=== PATIENT | female | born 1985 | race Hispanic/Latino ===

== ENCOUNTER 2016-12-21 07:00 | Emergency (ER) | payer SELFPAY ==
[2016-12-21 07:34] VITALS: BP 158/90; PULSE 100; RESP 18; TEMP 98.4; O2SAT 100
--- NOTE | 2016-12-21 07:39 | ED PDOC ---
HPI: Psych/Substance Abuse Time Seen by Provider: 12/21/16 07:12 Chief Complaint (Nursing): Substance Abuse History Per: Patient, EMS History/Exam Limitations: no limitations Current Symptoms Are (Timing): Gone Now Suicide/Self Injury Attempted (Context): None Severity: Mild Associated Symptoms: denies: Anger, Anxiety, Agitation, Depression, Paranoia, Suicidal Thoughts, Suicidal Plan Involuntary Hold By: None Additional History Per: EMS Additional Complaint(s): As per EMS, pt was found sleeping on the street. Pt admits to taking 1 tab of Xanax. Pt denies a/v/t hallucinations. Pt denies suicidal or homicidal ideations. Pt states she is stressed due to work and has not had any sleep. pt is refusing any medical eval at this time. Against Medical Advice - AMA Patient Left Against Medical Advice: The patient declines admission to the hospital and wishes to leave the Emergency Department. This action is against my medical advice. This decision was made with informed refusal. The patient was told that admission to the hospital is necessary. Explanation of the reasons why were discussed. The risks of leaving were explained to the patient and include, but are not limited to, worsening of known or currently unknown conditions, permanent disability and from undiagnosed or untreated conditions. The patient has the capacity to make this informed decision and understands my explanation of the current medical problem and risks of leaving. The patient voluntarily accepts these risks and signed an AMA form documenting our conversation. The patient was given the opportunity to ask questions and reconsider. The patient was encouraged to return to the Emergency Department at any time for further care. Past Medical History Reviewed: Historical Data, Nursing Documentation, Vital Signs Vital Signs: Last Vital Signs Temp 98.4 F 12/21/16 07:31 Pulse 100 H 12/21/16 07:31 Resp 18 12/21/16 07:31 BP 158/90 H 12/21/16 07:31 Pulse Ox 100 12/21/16 07:31 - Medical History PMH: No Chronic Diseases - Family History Family History: States: Unknown Family Hx - Living Arrangements Living Arrangements: With Friends/Others - Social History Alcohol: None Drugs: Denies - Allergies Allergies/Adverse Reactions: Allergies Allergy/AdvReac Type Severity Reaction Status Date / Time No Known Allergies Allergy Verified 12/21/16 07:34 Review of Systems ROS Statement: Except As Marked, All Systems Reviewed And Found Negative Constitutional: Negative for: Fever, Chills Neurological: Negative for: Weakness, Numbness Psych: Negative for: Anxiety, Depression, Psychosis, Suicidal ideation, Withdrawal Physical Exam - Reviewed Nursing Documentation Reviewed: Yes Vital Signs Reviewed: Yes - Physical Exam Appears: Positive for: Well Head Exam: Positive for: ATRAUMATIC, NORMAL INSPECTION, NORMOCEPHALIC Eye Exam: Positive for: Normal appearance Neurologic/Psych: Positive for: Alert, 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 Negative for: Motor/Sensory Deficits, Aphasia, Facial Droop Comments: pt refuses any other medical exam or treatment - ECG O2 Sat by Pulse Oximetry: 100 Pulse Ox Interpretation: Normal - Progress ED Course And Treament: pt refused a medical screening exam. pt is determined by me to be competent to makes this decision pt advise to seek treatment in this or any other ed for further eval. pt levaes ambulatory and in good spirits. Re-evaluation Time: 07:40 Condition: Improved Disposition - Clinical Impression Clinical Impression: Substance abuse - Patient ED Disposition Is Patient to be Admitted: No Counseled Patient/Family Regarding: Studies Performed, Diagnosis, Need For Followup - Disposition Disposition: Against Medical Advice Disposition Time: 07:42 Condition: GOOD Forms: [facility] (Japanese)
== END 2016-12-21 07:38 | disposition left against medical advice (07) ==
LOC: H.ER 07:00
DX: F19.10 Other psychoactive substance abuse, uncomplicated (principal)

== ENCOUNTER 2016-12-21 08:19 | Observation (INO) | payer SELFPAY ==
--- NOTE | 2016-12-21 08:51 | ED PDOC ---
HPI: Psych/Substance Abuse Time Seen by Provider: 12/21/16 08:27 Chief Complaint (Nursing): Psychiatric Evaluation ED Caveat: Acuity of Condition, Intoxicated History Per: Patient, EMS History/Exam Limitations: clinical condition Onset/Duration Of Symptoms: Sudden Onset Severity: Moderate Associated Symptoms: Anxiety, Agitation. denies: Depression, Paranoia, Suicidal Thoughts, Suicidal Plan Involuntary Hold By: Emergency Physician Additional History Per: Patient, Other (police) Additional Complaint(s): this pt just left [facility] for substance abuse, per police, pt is agitated, walking in front of traffic, unable to direct. 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 Past Medical History Reviewed: Historical Data, Nursing Documentation, Vital Signs Vital Signs: Last Vital Signs Temp 98.6 F 12/21/16 08:30 Pulse 89 12/21/16 08:30 Resp 18 12/21/16 08:30 BP Pulse Ox 100 12/21/16 08:30 - Medical History PMH: No Chronic Diseases - Family History Family History: States: Unknown Family Hx - Living Arrangements Living Arrangements: With Friends/Others - Social History Drugs: Prescription medications - Home Medications Home Medications: Ambulatory Orders Medication Instructions Recorded Unobtainable 12/21/16 - Allergies Allergies/Adverse Reactions: Allergies Allergy/AdvReac Type Severity Reaction Status Date / Time No Known Allergies Allergy Verified 12/21/16 07:34 Review of Systems Review Of Systems: ROS cannot be obtained secondary to pt's inabilty to answer questions. (pt is agitated and refuses to answer questions) Physical Exam - Reviewed Nursing Documentation Reviewed: Yes Vital Signs Reviewed: Yes - Physical Exam Appears: Positive for: In Acute Distress (mild) Eye Exam: Positive for: Normal appearance, EOMI, PERRL ENT: Positive for: Pharynx Is (clear,mmm). Negative for: Nasal Congestion, Pharyngeal Erythema, Tonsillar Exudate, Tonsillar Swelling Neck: Positive for: Normal, Painless ROM, Supple. Negative for: Decreased ROM, Limited ROM, Trachea Midline Cardiovascular/Chest: Positive for: Regular Rate, Rhythm, Chest Non Tender. Negative for: Edema, Gallop, Murmur, Bradycardia, Tachycardia Respiratory: Positive for: Normal Breath Sounds. Negative for: Decreased Breath Sounds, Accessory Muscle Use, Crackles, Stridor, Wheezing Pulses-Radial (L): 2+ Pulses-Radial (R): 2+ Gastrointestinal/Abdominal: Positive for: Normal Exam, Bowel Sounds, Soft. Negative for: Tenderness Back: Positive for: Normal Inspection. Negative for: L CVA Tenderness, R CVA Tenderness Extremity: Positive for: Normal ROM. 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 Negative for: Motor/Sensory Deficits, Aphasia, Facial Droop Comments: no signs of trauma - Laboratory Results Result Diagrams: 12/21/16 09:24 12/21/16 09:24 - ECG O2 Sat by Pulse Oximetry: 100 Pulse Ox Interpretation: Normal Disposition - Clinical Impression Clinical Impression: Substance abuse, Polysubstance abuse - Patient ED Disposition Is Patient to be Admitted: Transfer of Care Counseled Patient/Family Regarding: Studies Performed, Diagnosis, Need For Followup - Disposition Disposition Time: 11:00 Condition: STABLE Patient Signed Over To: Taylor Harper
[2016-12-21 09:32] LABS: BASO # 0.1 K/uL (0.0-0.2); BASO % 0.4 % (0.0-2.0); EOS # 0.2 K/uL (0.0-0.7); EOS % 0.8 % (0.0-4.0); HEMATOCRIT 43.9 % (34.0-47.0); LYMPH # 3.8 K/uL (1.0-4.3); LYMPH % 19.2 % (20.0-40.0); MEAN CORPUSCULAR HEMOGLOBIN 30.7 pg (27.0-31.0); MEAN PLATELET VOLUME 8.4 fl (7.2-11.7); MONO # 1.9 K/uL (0.0-0.8); MONO % 9.5 % (0.0-10.0); NEUT % 70.1 % (50.0-75.0); NRBC % 0.1 % (0.0-0.0); RED CELL DISTRIBUTION WIDTH 12.9 % (11.5-14.5); WHITE BLOOD COUNT 19.9 K/uL (4.8-10.8)
[2016-12-21 09:58] LABS: ALB/GLOB RATIO 1.4 (1.0-2.1); ALCOHOL SERUM < 10 mg/dl (0-10); ALKALINE PHOSPHATASE 74 U/L (38-126); ALT/SGPT 44 U/L (9-52); AST/SGOT 39 U/L (14-36); BILIRUBIN,TOTAL 0.8 mg/dl (0.2-1.3); BLOOD UREA NITROGEN 11 mg/dl (7-17); CALCIUM 9.4 mg/dL (8.4-10.2); CARBON DIOXIDE 27 mmol/L (22-30); CHLORIDE 102 mmol/L (98-107); GFR AFRICAN-AMERICAN > 60; GLUCOSE,RANDOM 97 mg/dL (65-105); POTASSIUM 3.2 MMOL/L (3.6-5.0); SODIUM 140 mmol/l (132-148); TOTAL PROTEIN 7.7 G/DL (6.3-8.2)
--- NOTE | 2016-12-21 18:40 | CT ---
PROCEDURE: CT Abdomen and Pelvis without intravenous contrast HISTORY: left flank pain COMPARISON: None. TECHNIQUE: Without contrast.. Contrast Dose: Radiation dose: Total exam DLP = 274 mGy-cm. This CT exam was performed using one or more of the following dose reduction techniques: Automated exposure control, adjustment of the mA and/or kV according to patient size, and/or use of iterative reconstruction technique. FINDINGS: LOWER THORAX: Unremarkable. LIVER: Unremarkable. No gross lesion or ductal dilatation. GALLBLADDER AND BILE DUCTS: Unremarkable. PANCREAS: Unremarkable. No gross lesion or ductal dilatation. SPLEEN: Unremarkable. ADRENALS: Unremarkable. No mass. KIDNEYS AND URETERS: There is a 2 mm stone in the region of the left UVJ. This is seen on image 160 series 3 and coronal image 46. The distal ureter is difficult to visualize due to lack of abdominal fat. It is possible that this represents a recently passed stone within the bladder. It is also possible that this represents a small phlebolith adjacent to the ureter. An additional phlebolith is seen this region on image 163 and 162. There is no evidence of hydronephrosis or perinephric stranding VASCULATURE: Unremarkable. No aortic aneurysm. BOWEL: Unremarkable. No obstruction. No gross mural thickening. APPENDIX: Unremarkable. Normal appendix. PERITONEUM: Unremarkable. No free fluid. No free air. LYMPH NODES: Unremarkable. No enlarged lymph nodes. BLADDER: Unremarkable. REPRODUCTIVE: Unremarkable. BONES: No acute fracture. OTHER FINDINGS: None. IMPRESSION: Possible 2 mm left UVJ stone versus recently passed stone within the bladder or phlebolith. See comments No evidence of hydronephrosis or perinephric stranding
[2016-12-21 19:13] VITALS: RESP 16
--- NOTE | 2016-12-21 21:26 | ED PDOC ---
- Laboratory Results Result Diagrams: 12/21/16 09:24 12/21/16 09:24 - ECG O2 Sat by Pulse Oximetry: 99 Pulse Ox Interpretation: Normal - Radiology X-Ray: Interpreted by Me X-Ray Interpretation: No Acute Disease - Progress ED Course And Treament: 5p Rec'd endorsement from Dr Benites. Pt with acute anxiety w psychosis. 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 Pt to be screened for involuntary psych by [facility]. However, due to pt not giving urine, [facility] eval still pending. 8p Pt anxious. Desires to leave. Advised she is getting eval by [facility] and needs urine sample to be given. 9p Pt still has not given UA. Straight cath ordered. 10p Pt medically stable for psych evaluation. Polysubstance abuse in utox. CXR wnl. Disposition - Clinical Impression Clinical Impression: Substance abuse, Polysubstance abuse - POA Present On Arrival: None - Disposition Disposition: Transfer of Care Disposition Time: 17:00 Condition: STABLE Patient Signed Over To: Sandrine Hemphill Handoff Comments: Pending [facility] eval
[2016-12-21] MEDS ORDERED: Potassium Chloride 20 mEq ER Tab PO STA (22:02)
[2016-12-21 22:16] LABS: RBC URINE 13 /hpf (0-3); URINE BILIRUBIN NEGATIVE (NEGATIVE); URINE BLOOD MODERATE (NEGATIVE); URINE COLOR YELLOW (YELLOW); URINE GLUCOSE (UA) NEG (Normal); URINE KETONE 80 mg/dL (NEGATIVE); URINE LEUKOCYTE ESTERASE NEG Leu/uL (Negative); URINE PROTEIN 30 mg/dL (NEGATIVE); URINE UROBILINOGEN 0.2-1.0 mg/dL (0.2-1.0); WBC URINE 2 /hpf (0-5)
[2016-12-21] MEDS ORDERED: Potassium Chloride 20 mEq ER Tab PO ONE (22:33)
--- NOTE | 2016-12-22 00:25 | ED PDOC ---
- Laboratory Results Result Diagrams: 12/21/16 09:24 12/21/16 09:24 - ECG O2 Sat by Pulse Oximetry: 99 (RA) Pulse Ox Interpretation: Normal Medical Decision Making Medical Decision Making: Receiving sign out: Patient signed out to me by Dr. Harper at 00:24 pending [facility] screen. Scribe Attestation: Documented by Glenis Gutierrez acting as a scribe for Sandrine Hemphill MD. Provider Attestation: All medical record entries made by the Scribe were at my direction and personally dictated by me. I have reviewed the chart and agree that the record accurately reflects my personal performance of the history, physical exam, medical decision making, and the department course for this patient. I have also personally directed, reviewed, and agree with the discharge instructions and disposition. Disposition - Clinical Impression Clinical Impression: Substance abuse, Polysubstance abuse - POA Present On Arrival: None - Disposition Disposition: Routine/Home Disposition Time: 00:30 Condition: STABLE Progress Note - Review of Symptoms Events since last encounter: 01:38 Patient reports feeling better. Patient awake, alert and oriented x3. Stable for discharge home as per dr calderon (making line worker evaluate pt in the ER).
[2016-12-22 03:33] VITALS: BP 122/78; PULSE 89; TEMP 98.2
--- NOTE | 2016-12-22 10:17 | RAD ---
HISTORY: crisis eval COMPARISON: None. FINDINGS: LUNGS: No active pulmonary disease. PLEURA: No significant pleural effusion identified, no pneumothorax apparent. CARDIOVASCULAR: Normal. OSSEOUS STRUCTURES: No significant abnormalities. VISUALIZED UPPER ABDOMEN: Normal. OTHER FINDINGS: None. IMPRESSION: No active disease. No preliminary report provided by emergency department personnel.
[2016-12-25 10:56] VITALS: O2SAT 100
== END 2016-12-22 01:31 | disposition home or self-care (01) ==
LOC: H.ER 08:19 → H.EROBSV 17:14
PROVIDERS: ADMIT Emergency Medicine; ATTEND Emergency Medicine
DX: F19.10 Other psychoactive substance abuse, uncomplicated (principal); F41.9 Anxiety disorder, unspecified; F29 Unspecified psychosis not due to a substance or known physiological condition; Z78.1 Physical restraint status
CPT/HCPCS: 71010; 74176; 80053; 81003; 81025; 84703; 85025; 96372; 99285; G0378; G0480; J2060